=== PATIENT | male | born 1975 | race Two or more races ===

== ENCOUNTER 2021-04-23 10:37 | Day surgery (SDC) | payer OTHER ==
[2021-04-23] MEDS ORDERED: ULTRACET PO (16:23)
[2021-04-23] MEDS ORDERED: SURFAK240 M1 PO (16:24)
[2021-04-23] MEDS ORDERED: POLY119PG PO ×2 (16:24→16:25)
== END 2021-04-23 20:25 | disposition home or self-care (01) ==
LOC: CIR.AMB 10:37
PROVIDERS: ATTEND Surgery
DX: K42.0 Umbilical hernia with obstruction, without gangrene (principal); K43.6 Other and unspecified ventral hernia with obstruction, without gangrene; K40.30 Unilateral inguinal hernia, with obstruction, without gangrene, not specified as recurrent; Z20.822 Contact with and (suspected) exposure to COVID-19